=== PATIENT | male | born 1965 | race Caucasian/White ===

== ENCOUNTER 2020-02-23 23:36 | Inpatient (IN) | payer MEDICAID ==
[2020-02-24 21:54] VITALS: BP 130/79
[2020-02-24] MEDS ORDERED: Magnesium Hydroxide (MOM) 30 mL UDC PO PRN (22:03)
[2020-02-24] MEDS ORDERED: Maalox 30 mL Cup PO PRN (22:03)
[2020-02-25 15:40] LABS: CHOLESTEROL 211 mg/dL (<200)
[2020-02-25 15:41] LABS: LDL CHOLESTEROL 145 mg/dL (0-129); TRIGLYCERIDES 223 mg/dL (30-150)
--- NOTE | 2020-02-25 15:52 | History & Physical ---
ADMIT DATE: 02/24/2020 CHIEF COMPLAINT: Chest pain. HISTORY OF PRESENT ILLNESS: We have a 54-year-old male with diabetes, hypertension, who is admitted at outside hospital for chest pain. The patient denies any nausea, vomiting, abdominal pain, diarrhea, rectal bleeding, or melena. PAST MEDICAL HISTORY: Diabetes, hypertension. PAST SURGICAL HISTORY: None. MEDICATIONS: List reviewed. ALLERGIES: None. SOCIAL HISTORY: Tobacco, IV drugs, ETOH negative. PHYSICAL EXAMINATION: VITAL SIGNS: Temperature is 98.0, pulse 72, respirations 20, blood pressure is 124/79, satting 97% on room air. HEENT: Normocephalic, atraumatic head exam. NECK: Supple. CARDIOVASCULAR: Regular rate and rhythm. LUNGS: Decreased breath sounds. ABDOMEN: Soft, nontender. EXTREMITIES: No edema, cyanosis or clubbing. CN exam is grossly intact ASSESSMENT AND PLAN: 1. Diabetes. 2. Hypertension. 3. Schizophrenia. The patient will be continued on Accu-Cheks q.a.c. and at bedtime. We will check labs, CBC, CMP. JOB# [id number] [facility]
--- NOTE | 2020-02-25 16:41 | Psychiatric Evaluation ---
DATE OF SERVICE: 02/24/2020 IDENTIFYING DATA: The patient is a 54-year-old male, living by himself. Information obtained directly interviewing the patient as well as reviewing the admission papers. JUSTIFICATION OF HOSPITALIZATION: The patient is admitted here on a 5150 as a danger to self. CHIEF COMPLAINT: "I am tired, I am not going to talk to anyone, leave me alone." HISTORY OF PRESENT ILLNESS: Significant for the patient being very irritable, angry and has been threatening to harm himself and hence the patient has been placed on 5150 and admitted over here for stabilization. Details about prior psychiatric hospitalizations and treatments are not available; however, the blood work done at the time of the hospitalization in the Emergency Room is indicating that the patient is positive for methamphetamine. PAST PSYCHIATRIC HISTORY: Details are not known. MEDICAL HISTORY: Physical examination is requested, done by Dr. Gooden. SUBSTANCE ABUSE HISTORY: The patient is reported to have been abusing methamphetamine, but he is not giving the details. LEGAL PROBLEMS: None at this time. PHYSICAL AND SEXUAL ABUSE HISTORY: None at this time. STRENGTH AND ASSETS: The patient seems to be motivated. MENTAL STATUS EXAMINATION: The patient is a 54-year-old, looking his stated age, superficially cooperative. Eye contact is poor. Mood is noted to be irritable. Affect is constricted. The patient is not cooperative at this time. The patient is getting easily irritable. Sleep and appetite are noted to be poor at this time and insight and judgment are also noted to be very much impaired. The patient is threatening to take his life and the patient is not homicidal. The patient is very paranoid and is very suspicious at this time. The patient is not providing much of information. Attention span and concentration are noted to be poor. The patient appears to be of average intelligence tested by the vocabulary. The patient is a poor historian at this time, I am going to be starting the patient with low dose of an antipsychotic medication to take care of the paranoia first and consider antidepressant medication if the patient presents with the depressive symptoms. DIAGNOSTIC IMPRESSION: AXIS I: Psychotic disorder, not otherwise specified. IMMEDIATE TREATMENT PLAN: The patient is going to be closely monitored and followed up with supportive therapy. JOB# [id number]
[2020-02-25] MEDS ORDERED: GLUCAGON HCl 1 MG KIT IM PRN (19:36)
[2020-02-25] MEDS: INSULIN LISPRO SLIDING SCALE 100 UNITS/ML UNIT SUBQ SCH (20:49)
[2020-02-26 06:07] LABS: A1C 7.9 % (4.8-5.6)
[2020-02-26] MEDS: INSULIN LISPRO SLIDING SCALE 100 UNITS/ML UNIT SUBQ SCH ×4 (06:50→21:27)
--- NOTE | 2020-02-26 14:25 | Progress Notes ---
DATE: 02/26/2020 PSYCHIATRIC PROGRESS NOTE SUBJECTIVE: Staff was spoken to. The patient is interviewed. Mood is noted to be irritable. Affect is constricted. Insight and judgment are noted to be still impaired. Impulse control is noted to be limited. The patient continues to be irritable and angry and the patient has been paranoid. The patient is still fearful that someone is going to be out there to kill him. The patient has been up all night and the patient's staff have reassured him and I gave him 5 mg of Ambien to calm him down. ASSESSMENT: The patient still continues to be psychotic and is fearful of his life. PLAN: To continue the patient with the supportive therapy. I encouraged the patient to verbalize the concerns rather than to act out. JOB# [id number]
[2020-02-27] MEDS: INSULIN LISPRO SLIDING SCALE 100 UNITS/ML UNIT SUBQ SCH ×4 (06:32→20:14)
--- NOTE | 2020-02-27 19:46 | Progress Notes ---
DATE: 02/27/2020 SUBJECTIVE: Staff was spoken to. The patient is interviewed. Mood is noted to be irritable. Affect is constricted. The patient is stating that he has been still fearful that someone is out are to hurt him. The patient has been reluctant to comply with the medications. Insight and judgment are noted to be still impaired. Impulse control seems to be improving. The patient is currently on Zyprexa 5 mg twice a day. No side effects are noted. ASSESSMENT: The patient is still psychotic. PLAN: To continue the patient with the current medications. I encouraged the patient to verbalize the concerns rather than to act out. The patient is stating that he lives in [place] and he needs to get back there. JOB# [id number]
[2020-02-28] MEDS: INSULIN LISPRO SLIDING SCALE 100 UNITS/ML UNIT SUBQ SCH ×2 (06:30→11:31)
[2020-02-28 11:16] LABS: HEMATOCRIT 43.9 % (36-54); HEMOGLOBIN 15.3 g/dL (14.0-18.0); MEAN CORPUSCULAR HEMOGLOBIN 29 pg (27-31); MEAN CORPUSCULAR HGB CONC 35 % (32-36); MEAN CORPUSCULAR VOLUME 83 fL (79.0-98.0); RED BLOOD COUNT 5.29 MIL/uL (4.2-6.2); WHITE BLOOD COUNT 7.2 K/uL (4.8-10.8)
[2020-02-28 11:17] LABS: % NEUTROPHILS 71.5 % (40-70); BASOPHILS % (AUTO) 0.6 % (0.0-2.0); EOSINOPHILS # (AUTO) 0.1 K/uL (0.0-0.4); EOSINOPHILS % (AUTO) 1.7 % (0-4); LYMPHOCYTES # (AUTO) 1.3 K/uL (1.0-5.5); LYMPHOCYTES % (AUTO) 18.1 % (20.5-51.5); MONOCYTES # (AUTO) 0.6 K/uL (0.0-1.0); MONOCYTES % (AUTO) 8.1 % (1.7-9.3); NEUTROPHILS # (AUTO) 5.2 K/uL (1.8-7.7); PLATELET COUNT 282 K/uL (130-430)
--- NOTE | 2020-02-28 20:16 | Discharge Summary ---
DATE OF DISCHARGE: 02/28/2020 IDENTIFYING DATA: The patient is a 54-year-old male, living by himself. JUSTIFICATION OF HOSPITALIZATION: The patient is admitted on a 5150 as a danger to self. CHIEF COMPLAINT: "I am tired, I am not going to talk to anyone, leave me alone." DIAGNOSES AT THE TIME OF ADMISSION: AXIS I: Psychotic disorder, not otherwise specified. AXIS II: None. AXIS III: None. HISTORY OF PRESENT ILLNESS: Please refer to the 02/25/2020 dictation done by me. Physical examination was done by Dr. Gooden and is noted to be within normal limits. HOSPITAL COURSE AND RESPONSE TO TREATMENT: The patient has been isolative and withdrawn. The patient continued to be very paranoid. The patient has been endorsing that he has been using methamphetamine and has been getting very paranoid. The patient has not been compliant with medications. In view of this one, the patient has been started on Zyprexa that was given 5 mg twice a day and the patient has been closely monitored. The patient started to do fairly well and noted to be not suicidal or homicidal, and hence the patient was discharged on 02/28/2020 with recommendation that he is going to be seeking treatment on an outpatient basis. MENTAL STATUS EXAMINATION AT THE TIME OF DISCHARGE: The patient's mood is noted to be anxious. Affect is appropriate. Not suicidal or homicidal. Insight and judgment are noted to be improving. Impulse control is noted to be fair. No side effects to the medications are noted at the time of the discharge. CONDITION AT THE TIME OF DISCHARGE: Noted to be stable. JOB# [id number]
--- NOTE | 2020-02-28 21:15 | Progress Notes ---
DATE: 02/28/2020 PSYCHIATRIC PROGRESS NOTE SUBJECTIVE: Staff was spoken to. The patient is interviewed. Mood is noted to be anxious. Affect is appropriate. The patient is not suicidal or homicidal. The patient is endorsing that he has been using lot of meth and that is why he became paranoid. The patient at this time is not presenting with any threats to harm self or others and is motivated to seek treatment. The patient is able to tolerate the medications. No side effects to medications are noted. The patient's sleep and appetite are noted to be fair. ASSESSMENT: The patient is stabilizing. PLAN: To discharge the patient today for followup on an outpatient basis. JOB# [id number]
== END 2020-02-28 15:10 | disposition home or self-care (01) | DRG 885 ==
LOC: GERO 02-24 19:16
PROVIDERS: ADMIT Psychiatry & Neurology Psychiatry; ATTEND Psychiatry & Neurology Psychiatry
DX: F23 Brief psychotic disorder (principal); I10 Essential (primary) hypertension; E11.9 Type 2 diabetes mellitus without complications
CPT/HCPCS: 36415-UA; 80061-TC; 82948-90; 83036-90; 85025-TC; J7051; U0003-CS; Z7610